=== PATIENT | female | born 1940 | race Hispanic/Latino ===

== ENCOUNTER 2016-12-31 10:12 | Inpatient (IN) | payer MEDICARE, MEDICAID, OTHER ==
[2016-12-31 11:36] VITALS: BMI 19.3
--- NOTE | 2016-12-31 12:01 | ED PDOC ---
Arrival/HPI - General Chief Complaint: Syncope Time Seen by Provider: 12/31/16 11:28 Historian: Patient, EMS - History of Present Illness Narrative History of Present Illness (Text): 12/31/16 11:04 A 76 year old female, who denies any significant past medical history, is brought into the emergency department by EMS after a near syncopal episode. EMS states the patient was found sitting on a chair at the bank and was not responding to any commands. The patient states she was standing by the [place] at the back when she began to feel hot. Patient does not recall the incident and states she does not believe she passed out. She says she came to the emergency department because EMS told her too. She denies any chest pain, shortness of breath, or any other complaints prior to the incident or at this time. PMD: Dr. Hall Time/Duration: Prior to Arrival Symptom Onset: Sudden Symptom Course: Unchanged Quality: Other Activities at Onset: Other Context: Other Past Medical History - Provider Review Nursing Documentation Reviewed: Yes - Infectious Disease Hx of Infectious Diseases: None - Psychiatric Hx Substance Use: No - Anesthesia Hx Anesthesia: No Family/Social History - Physician Review Nursing Documentation Reviewed: Yes Family/Social History: Unknown Family HX Smoking Status: Unknown If Ever Smoked Hx Alcohol Use: No Hx Substance Use: No Allergies/Home Meds Allergies/Adverse Reactions: Allergies No Known Allergies Allergy (Verified 12/31/16 10:40) Review of Systems - Physician Review All systems were reviewed & negative as marked: Yes - Review of Systems Constitutional: Other (felt hot) Respiratory: absent: SOB Cardiovascular: Syncope (questionable). absent: Chest Pain Physical Exam Vital Signs Reviewed: Yes Vital Signs Temp Pulse Resp BP Pulse Ox 12/31/16 12:12 53 L 16 180/91 H 100 12/31/16 10:38 96.9 F L 52 L 16 167/94 H 100 Temperature: Afebrile Blood Pressure: Hypertensive Pulse: Bradycardic Respiratory Rate: Normal Appearance: Positive for: Well-Appearing, Non-Toxic, Comfortable Pain Distress: None Mental Status: Positive for: Alert and Oriented X 3 Finger Stick Blood Glucose: 90 - Systems Exam Head: Present: Atraumatic, Normocephalic Pupils: Present: PERRL Extroacular Muscles: Present: EOMI Conjunctiva: Present: Normal Mouth: Present: Moist Mucous Membranes Neck: Present: Normal Range of Motion Respiratory/Chest: Present: Clear to Auscultation, Good Air Exchange. No: Respiratory Distress, Accessory Muscle Use Cardiovascular: Present: Regular Rate and Rhythm, Normal S1, S2. No: Murmurs Abdomen: Present: Normal Bowel Sounds. No: Tenderness, Distention, Peritoneal Signs Back: Present: Normal Inspection Upper Extremity: Present: Normal Inspection. No: Cyanosis, Edema Lower Extremity: Present: Normal Inspection. No: Edema Neurological: Present: GCS=15, CN II-XII Intact, Speech Normal Skin: Present: Warm, Dry, Normal Color. No: Rashes Psychiatric: Present: Alert, Oriented x 3, Normal Insight, Normal Concentration Medical Decision Making ED Course and Treatment: EKG: Ordered, reviewed, and independently interpreted the EKG. Rate : 49 BPM Rhythm : Sinus Bradycardia Interpretation : Normal axis, normal intervals, no acute ischemia. Comparison : No previous EKG for comparison. 12/31/16 12:25 Chest X-ray: Creator : Yasmin Mcgovern MD COMPARISON: No prior. FINDINGS: LUNGS: The lungs are hyperinflated and there is peribronchial thickening with chronic changes in both lungs. PLEURA: No significant pleural effusion identified, no pneumothorax apparent. CARDIOVASCULAR: There is a mild cardiomegaly. Atherosclerotic aortic arch calcifications are present. . OSSEOUS STRUCTURES: No significant abnormalities. VISUALIZED UPPER ABDOMEN: Normal. OTHER FINDINGS: None. IMPRESSION: COPD. No active pulmonary disease. 12/31/16 13:[address]: Creator : Yasmin Mcgovern MD COMPARISON: None available. FINDINGS: HEMORRHAGE: No intracranial hemorrhage. BRAIN: There is an old lacunar infarction in the left pierre radiata and body of the caudate nucleus. There are mild chronic microangiopathic changes. There is no mass, mass effect or abnormal extra-axial fluid collection. VENTRICLES: There is mild age-related global parenchymal volume loss and proportionate enlargement of the ventricles and cortical sulci. CALVARIUM: The skull base and calvarium are normal. PARANASAL SINUSES: There are retention cysts/polyps in the left frontal sinus and both maxillary sinuses. MASTOID AIR CELLS: Predominantly clear. OTHER FINDINGS: None. IMPRESSION: 1. No acute intracranial abnormality. 2. Old lacunar infarction in the left pierre radiata and body of the caudate nucleus. 3. Mild chronic microangiopathic changes and mild age-related global parenchymal volume loss. - Lab Interpretations Lab Results: 12/31/16 12:56 12/31/16 12:56 Lab Results 12/31/16 12:56: WBC 7.6, RBC 4.63, Hgb 14.3, Hct 42.7, MCV 92.2, MCH 30.9, MCHC 33.5, RDW 13.4, Plt Count 146, MPV 11.3 H, Gran % 86.7 H, Lymph % (Auto) 7.5 L, Giles % (Auto) 5.0, Eos % (Auto) 0.5 L, Baso % (Auto) 0.3, Gran # 6.58 H, Lymph # 0.6 L, Giles # 0.4, Eos # 0.0, Baso # 0.02, Sodium 135, Potassium 4.5, Chloride 103, Carbon Dioxide 25, Anion Gap 12, BUN 14, Creatinine 0.8, Est GFR ( Amer) > 60, Est GFR (Non-Af Amer) > 60, Random Glucose 80, Calcium 9.3, Total Bilirubin 1.1, AST 23, ALT 14, Alkaline Phosphatase 91, Troponin I < 0.01 , Total Protein 6.8, Albumin 3.8, Globulin 3.0, Albumin/Globulin Ratio 1.3 I have reviewed the lab results: Yes - RAD Interpretation Radiology Orders: 12/31/16 11:42 HEAD W/O CONTRAST [CT] Stat 12/31/16 11:43 CHEST PORTABLE [RAD] Stat - Scribe Statement The provider has reviewed the documentation as recorded by the Lotusibjimena Butler Provider Scribe Attestation: All medical record entries made by the Scribjimena were at my direction and personally dictated by me. I have reviewed the chart and agree that the record accurately reflects my personal performance of the history, physical exam, medical decision making, and the department course for this patient. I have also personally directed, reviewed, and agree with the discharge instructions and disposition. Disposition/Present on Arrival - Present on Arrival History of DVT/PE: No History of Uncontrolled Diabetes: No Urinary Catheter: No History of Decub. Ulcer: No History Surgical Site Infection Following: None - Disposition Referrals: Sadiq Hall MD [Primary Care Provider] - Follow up with primary
--- NOTE | 2016-12-31 12:22 | RAD ---
HISTORY: Syncope COMPARISON: No prior. FINDINGS: LUNGS: The lungs are hyperinflated and there is peribronchial thickening with chronic changes in both lungs. PLEURA: No significant pleural effusion identified, no pneumothorax apparent. CARDIOVASCULAR: There is a mild cardiomegaly. Atherosclerotic aortic arch calcifications are present. . OSSEOUS STRUCTURES: No significant abnormalities. VISUALIZED UPPER ABDOMEN: Normal. OTHER FINDINGS: None. IMPRESSION: COPD. No active pulmonary disease.
[2016-12-31 13:08] LABS: ADD MANUAL DIFF? NO
[2016-12-31 13:18] LABS: BASO # 0.02 K/mm3 (0.0-2.0); BASO % 0.3 % (0.0-3.0); EOS % 0.5 % (1.5-5.0); GRAN # 6.58 (1.4-6.5); GRAN % 86.7 % (50.0-68.0); HEMATOCRIT 42.7 % (36.0-48.0); LYMPH # 0.6 (1.2-3.4); LYMPH % 7.5 % (22.0-35.0); MEAN CELL VOLUME 92.2 fL (80.0-105.0); MEAN CORPUSCULAR HEMOGLOBIN 30.9 pg (25.0-35.0); MEAN CORPUSCULAR HGB CONC 33.5 g/dl (31.0-37.0); MEAN PLATELET VOLUME 11.3 fl (7.0-11.0); MONO # 0.4 (0.1-0.6); PLATELET COUNT 146 10^3/uL (120.0-450.0); RED CELL DISTRIBUTION WIDTH 13.4 % (11.5-14.5); WHITE BLOOD COUNT 7.6 10^3/ul (4.5-11.0)
[2016-12-31 13:32] LABS: ALB/GLOB RATIO 1.3 (1.1-1.8); ALKALINE PHOSPHATASE 91 U/L (38-133); ALT/SGPT 14 U/L (7-56); AST/SGOT 23 U/L (15-39); BILIRUBIN,TOTAL 1.1 mg/dL (0.2-1.3); BLOOD UREA NITROGEN 14 mg/dL (7-21); CALCIUM 9.3 mg/dL (8.4-10.5); CARBON DIOXIDE 25 mmol/L (21-33); CHLORIDE 103 mmol/L (98-107); GFR AFRICAN-AMERICAN > 60; GLUCOSE,RANDOM 80 mg/dL (70-110); POTASSIUM 4.5 mmol/L (3.6-5.0); SODIUM 135 mmol/L (132-148); TOTAL PROTEIN 6.8 g/dL (5.8-8.3)
--- NOTE | 2016-12-31 13:46 | CT ---
PROCEDURE: CT HEAD WITHOUT CONTRAST. HISTORY: Syncope COMPARISON: None available. TECHNIQUE: Axial computed tomography images were obtained through the head/brain without intravenous contrast. Radiation dose: Total exam DLP = 688.51 mGy-cm. This CT exam was performed using one or more of the following dose reduction techniques: Automated exposure control, adjustment of the mA and/or kV according to patient size, and/or use of iterative reconstruction technique. FINDINGS: HEMORRHAGE: No intracranial hemorrhage. BRAIN: There is an old lacunar infarction in the left pierre radiata and body of the caudate nucleus. There are mild chronic microangiopathic changes. There is no mass, mass effect or abnormal extra-axial fluid collection. VENTRICLES: There is mild age-related global parenchymal volume loss and proportionate enlargement of the ventricles and cortical sulci. CALVARIUM: The skull base and calvarium are normal. PARANASAL SINUSES: There are retention cysts/polyps in the left frontal sinus and both maxillary sinuses. MASTOID AIR CELLS: Predominantly clear. OTHER FINDINGS: None. IMPRESSION: 1. No acute intracranial abnormality. 2. Old lacunar infarction in the left pierre radiata and body of the caudate nucleus. 3. Mild chronic microangiopathic changes and mild age-related global parenchymal volume loss.
[2016-12-31 13:48] LABS: TROPONIN I < 0.01 ng/mL
[2016-12-31 17:46] LABS: PH,URINE 6.5 (4.7-8.0); URINE BILIRUBIN NEGATIVE (NEGATIVE); URINE BLOOD MODERATE (NEGATIVE); URINE GLUCOSE (UA) NEGATIVE (NEGATIVE); URINE KETONE 15 mg/dL (NEGATIVE); URINE LEUKOCYTE ESTERASE NEGATIVE Leu/uL (NEGATIVE); URINE PROTEIN NEGATIVE mg/dL (<30 mg/dL)
[2016-12-31 18:29] LABS: URINE APPEARANCE CLEAR (CLEAR); URINE COLOR YELLOW (YELLOW)
[2016-12-31 18:54] LABS: URINE BACTERIA SMALL (NEG); URINE WBC 0 - 2 /hpf (0-6)
--- NOTE | 2016-12-31 18:56 | CARD ---
APPROVED REPORT EKG Measurement Heart [id number] CT [id number] <Conclusion> Marked sinus bradycardia Abnormal ECG
[2017-01-01] MEDS: Pantoprazole 20 mg EC Tab PO SCH (10:50)
--- NOTE | 2017-01-01 12:33 | US ---
PROCEDURE: Bilateral carotid artery duplex ultrasound HISTORY: Carotid stenosis dizziness PHYSICIAN(S): Trevon Barry MD. TECHNIQUE: Duplex sonography and color-flow Doppler were used to evaluate the carotid bifurcations and limited segments of the vertebral arteries bilaterally. FINDINGS: There is mild smooth heterogeneous plaque noted at the carotid bifurcations bilaterally. The peak systolic velocity in the proximal right internal carotid artery is 51 cm/sec. This corresponds to a 20 to 39% proximal right ICA stenosis. Normal systolic velocities are noted in the proximal right external carotid artery. There is antegrade flow in the right vertebral artery. The peak systolic velocity in the proximal left internal carotid artery is 60 cm/sec. This corresponds to a 20 to 39% proximal left ICA stenosis. Normal systolic velocities are noted in the proximal left external carotid artery. There is antegrade flow in the dominant left vertebral artery. IMPRESSION: 1. Bilateral 20-39% proximal ICA stenoses. 2. Antegrade flow in both vertebral arteries.
--- NOTE | 2017-01-01 13:58 | PN ---
DATE: 01/01/2017 REASON FOR CONSULTATION AND FOLLOWUP: Syncope, near syncope. BRIEF CLINICAL HISTORY: This is a 76-year-old female with no significant past medical history except resection of cyst around possible kidney in the right kidney, who said she went to the bank yesterda y, feeling very warm feeling and told to the [place], who advised her to sit down, called the ambulanc e and brought here. The patient denies any chest pain, denies any shortness of breath, denies any pa lpitation. She thinks she did not pass out. PAST MEDICAL HISTORY: Significant for hypertension. SOCIAL HISTORY: Denies smoking. Denies any history of alcohol abuse. Quit 1999. PAST SURGICAL HISTORY: Significant for removal of a cyst around the right lower quadrant behind the kidney possibly. The patient does not know the details. Denies any significant medical history. REVIEW OF SYSTEMS: As per HPI. PHYSICAL EXAMINATION: As follows: VITAL SIGNS: Temperature afebrile, heart rate 55, blood pressure 122/72. HEENT: PERRLA, intact. NECK: Supple. No carotid bruits. No thyromegaly. CHEST: Clear to auscultation. HEART: S1, S2 regular. ABDOMEN: Soft. EXTREMITIES: Clubbing and cyanosis negative. BLOOD WORKUP: As follows: WBC 7.6, hemoglobin 14.3, hematocrit 42.7, platelet count 146. Chemistry shows sodium 135, potassium ____, chloride 103, carbon dioxide 25, anion gap of 12, BUN 14, creatini ne 0.8. Troponin 0.01. IMPRESSION: Atypical presentation. Rule out syncope, rule out underlying coronary artery disease. Suggest echo and stress test, lipid profile, TSH, hemoglobin A1c. We will follow with you. Thank you, Dr. Hall, for providing the opportunity in taking care of the patient. Silvio Paz MD cc: [id number] TT: 01/01/2017 13:58:04 Confirmation # [id number] Dictation # [id number] sn
--- NOTE | 2017-01-01 14:25 | HP ---
HISTORY OF PRESENT ILLNESS: The patient came to the Emergency Room because of near syncope episode. This is a 76-year-old female who came in to the ER by ambulance because was in the bank sitting in a chair and was not responding to any commands. The patient was standing by the [place] at the bank an d began feeling hot and she sat on a chair and she did not to anybody and she passed out for a few seconds, called the ambulance and brought her to the Emergency Room for evaluation. The patient denied any chest pain, any short of breath, any nausea, vomiting or diarrhea. The patient is also no ncompliant with medications. PAST MEDICAL HISTORY: None. She does not take any medicines. MEDICATIONS: None. ALLERGIES: She has no known allergies. SOCIAL HISTORY: No smoking, no drinking. FAMILY HISTORY: Noncontributory. REVIEW OF SYSTEMS: She denied any chest pain, shortness of breath, palpitations or any other symptom s. The patient is noncompliant with office visits or with the recommendations. PHYSICAL EXAMINATION: GENERAL: As follows: She was alert, awake, oriented x 3 in the Emergency Room. She was afebrile. VITAL SIGNS: Temperature 96.9, heart rate 53, blood pressure is 167/94, respirations 16, saturation is 100%. HEAD AND NECK: Normal. No JVD, no thyromegaly. CHEST: Clear, good air entry. CARDIAC: First and second sounds normal. ABDOMEN: Soft, nontender. EXTREMITIES: No edema. NEUROLOGIC: Normal. She moves all extremities. She does have chest wall deformity on both sides. LABORATORY DATA: CT scan shows atrophy. EKG shows sinus tachycardia and a chest x-ray was no active pulmonary disease. Her laboratory shows white count 7.6, hemoglobin 14.3, hematocrit 42.7, platelet s 146. Chemistry: Sodium 135, potassium 4.5, chloride 103, bicarb is 25, BUN 14, creatinine 0.8. L iver function test is normal. Troponin was negative. IMPRESSION AND PLAN: The patient is a 76-year-old female came in because of syncope. Will admit the patient to telemetry and monitor her heart rate. Cardiology consult, Dr. Paz, and neurology consult , Dr. White. The patient will get cardiac enzymes. Cardiac workup will be done. We will monitor h er heart rate and monitor cardiac enzymes, blood pressure and will follow up clinically. We will put her on blood pressure medications and will reassess her. Sadiq Hall MD cc: [phone] TT: 01/01/2017 14:24:44 deandre
--- NOTE | 2017-01-01 15:54 | CON ---
DATE: 01/01/2017 HISTORY OF PRESENT ILLNESS: This is a 76-year-old female with a past medical history ____. The renan ent was found ____ PHYSICAL EXAMINATION: ____ NECK: Supple. NEUROLOGIC: Awake, oriented to self and place. Cranial nerves II through XII were tested. Pupils r eactive. EOMs intact. Visual nuñez full. No facial asymmetry. Tongue midline. MOTOR: Moves all the extremities equally. Tone normal. REFLEXES: Deep tendon reflexes 1+. Both plantars are downgoing. SENSORY: Appears intact. CEREBELLAR GAIT: Deferred. IMPRESSION: Syncopal episode, less likely seizure. PLAN: The patient is going to get a carotid Doppler and we will do EEG. Further management after e results of above tests. Willard White MD cc: [id number] TT: 01/01/2017 14:44:03 Confirmation # [id number] Dictation # [id number] mn
[2017-01-02 07:08] LABS: ADD MANUAL DIFF? NO
[2017-01-02 07:14] LABS: BASO # 0.04 K/mm3 (0.0-2.0); BASO % 0.9 % (0.0-3.0); EOS # 0.2 (0.0-0.7); EOS % 5.5 % (1.5-5.0); HEMATOCRIT 37.4 % (36.0-48.0); LYMPH % 22.7 % (22.0-35.0); MEAN CELL VOLUME 90.3 fL (80.0-105.0); MEAN CORPUSCULAR HEMOGLOBIN 30.7 pg (25.0-35.0); MEAN PLATELET VOLUME 11.2 fl (7.0-11.0); MONO # 0.4 (0.1-0.6); MONO % 8.9 % (1.0-6.0); PLATELET COUNT 157 10^3/uL (120.0-450.0); RED CELL DISTRIBUTION WIDTH 13.2 % (11.5-14.5); WHITE BLOOD COUNT 4.4 10^3/ul (4.5-11.0)
[2017-01-02 07:31] LABS: ALB/GLOB RATIO 1.2 (1.1-1.8); ALKALINE PHOSPHATASE 68 U/L (38-133); ALT/SGPT 27 U/L (7-56); AST/SGOT 16 U/L (15-39); BILIRUBIN,TOTAL 0.4 mg/dL (0.2-1.3); BLOOD UREA NITROGEN 24 mg/dL (7-21); CARBON DIOXIDE 26 mmol/L (21-33); CHLORIDE 104 mmol/L (98-107); CHOLESTEROL 217 mg/dL (130-200); GFR AFRICAN-AMERICAN > 60; GLUCOSE,RANDOM 95 mg/dL (70-110); MAGNESIUM 1.9 mg/dL (1.7-2.2); PHOSPHOROUS 3.3 mg/dL (2.5-4.5); POTASSIUM 4.7 mmol/L (3.6-5.0); SODIUM 136 mmol/L (132-148); TOTAL PROTEIN 5.7 g/dL (5.8-8.3)
[2017-01-02] MEDS: Pantoprazole 20 mg EC Tab PO SCH (07:51)
--- NOTE | 2017-01-02 10:02 | PN ---
DATE: 01/02/2017 REASON FOR CONSULTATION AND FOLLOWUP: Near syncope. BRIEF CLINICAL HISTORY: This is a 76-year-old female with no significant past medical history except resection of the cyst and possible kidney area, admitted with feeling very warm, near syncope while patient was in the bank. The patient has bradycardic episodes. The lowest heart rate was 47 at 2 a. m. No other arrhythmia noted in telemetry. The patient denies any chest pain, shortness of breath, any palpitation. The patient is scheduled for an echo and stress test today. PHYSICAL EXAMINATION: VITAL SIGNS: Temperature afebrile, heart rate 60, blood pressure 131/75. HEENT: PERRLA. Extraocular muscles intact. NECK: Supple. No carotid bruits. No thyromegaly. CHEST: Clear to auscultation. HEART: S1, S2 regular. ABDOMEN: Soft. EXTREMITIES: Clubbing and cyanosis negative. BLOOD WORKUP: WBC 4.4, hemoglobin 12.____, hematocrit 37.4, platelet count 157. Chemistry shows sod ium 136, potassium 4.7, chloride 104, carbon dioxide 26, anion gap of 11, BUN 24, creatinine 0.9. TS H 2.78. Cholesterol 217, LDL 216, HDL of 83, total protein 5.7, albumin 3.____, albumin/globulin rat io 1.2. IMPRESSION: Near syncope; bradycardia, lowest heart rate 47 on banquet lead while the patient w as sleeping at 2 a.m.; rule out any structural heart disease, rule out any ischemia, rule out any bra dyarrhythmia. RECOMMENDATION: Echo and stress test. We will consider a Holter after the stress test is completed. Will follow with you. Thank you, Dr. Hall, for providing the opportunity in taking care of the patient. Silvio Paz MD cc: [id number] TT: 01/02/2017 10:01:26 Confirmation # [id number] Dictation # [id number] giovanna
[2017-01-02] MEDS ORDERED: Aminophylline 25 mg/ml Inj ONE (11:22)
--- NOTE | 2017-01-02 13:23 | PN ---
DATE: 01/02/2017 CHIEF COMPLAINT: Follow up for near syncope. SUBJECTIVE: The patient is seen and examined at bedside. She is doing well. She had bradycardic ep isodes overnight. Lowest heart rate was 47. No arrhythmia noted on telemetry. She denies any focal tingling, numbness or weakness in the extremities at this time. She does not take an aspirin at [facility]. She is undergoing an echo and a stress test today. Carotid Doppler showed 20-39% proximal ICA st enosis and antegrade flow in the vertebral arteries. No acute events overnight. PAST MEDICAL HISTORY: None, is not taking any medications. MEDICATIONS: None at home. ALLERGIES: No known drug allergies. SOCIAL HISTORY: No illicit drug use, smoking, or ETOH abuse. FAMILY HISTORY: Noncontributory. REVIEW OF SYSTEMS: A 14-point review of systems is negative except for the HPI. PHYSICAL EXAMINATION: VITAL SIGNS: Temperature of 97.4, pulse rate of 66, blood pressure of 131/75, respiratory rate of 18 , oxygen saturation 98% via room air. GENERAL: The patient is sitting up in bed in no acute distress. HEENT: Atraumatic, normocephalic. PERRLA. Extraocular muscles intact. NECK: Supple, no JVD, no adenopathy noted. LUNGS: Clear to auscultation. No adventitious sounds. HEART: S1, S2, normal rate and rhythm. No murmurs, rubs, or gallops. ABDOMEN: Soft, nontender, nondistended. Bowel sounds are present. EXTREMITIES: No clubbing, no cyanosis. Peripheral pulses 2+ felt bilaterally. NEUROLOGIC: The patient is alert, oriented to person, place, month and year. Speech is fluent witho ut any errors. Flat affect. MOTOR: Slight increased tone throughout. Moves all extremities equally. No pronator drift seen. SENSORY: Light touch, pinprick, proprioception, vibration is intact. DTRs are 2+ throughout. COORDINATION: [id number] intact. GAIT: Deferred for now. LABORATORIES: Sodium is 136, potassium 4.7, chloride of 104, carbon dioxide 26, BUN of 24, creatinin e 0.9, random glucose of 95. ASSESSMENT AND PLAN: This is a 76-year-old woman with no significant past medical history, found to be bradycardic throughout her admission, the lowest being 47, came for a syncopal event. Her neurolo gic exam is currently nonfocal and the carotid Doppler showed 20-39% proximal internal carotid artery stenosis. Her syncope is likely secondary to possibly underlying possible arrhythmia/bradycardia ra ther than a seizure, unlikely a seizure disorder. At this time, recommend: 1. Physical therapy evaluation. 2. Aspirin 81 mg p.o. daily. 3. Requires better hydration throughout the day. 4. Follow up with cardiology in regards to the echo and stress test. At this time, no further neuro logical workup is needed at this time. Thank you for this followup. We will sign off. Ricki White MD cc: [phone] TT: 01/02/2017 13:22:45 Confirmation # [id number] Dictation # [id number] tn
--- NOTE | 2017-01-02 13:44 | PN ---
DATE: 01/01/2017 SUBJECTIVE: A 76-year-old female who came in with syncope. The patient seen by cardiology and neuro logy. She has an EEG that is pending and a stress test is pending. She feels better. She has no na usea, no recurrent symptoms and she feels better. PHYSICAL EXAMINATION: VITAL SIGNS: Temperature 98.4, heart rate 71, blood pressure 120/82, respirations 20, saturation 98% . HEAD AND NECK: Normal. No JVD, no thyromegaly. CHEST: Clear. Good air entry. CARDIAC: First sound, second sound normal. ABDOMEN: Soft, obese, nontender. EXTREMITIES: No edema. NEUROLOGIC: Normal. LABORATORY STUDIES: Ordered for tomorrow. Her labs previously were normal. We will repeat lab in t morning., chemistry, CBC, comprehensive metabolic and TSH. IMPRESSION AND PLAN: 1. Syncope. Neurology will get an EEG. CT was negative for bleed. Also, stress test will be order ed. The patient did have an echo, seen by cardiology. She had a carotid ultrasound. It was insigni ficant carotid stenosis and also she had an echocardiogram which results still pending. We will foll ow up clinically. 2. Hypertension. We will start Norvasc 2.5 mg daily. 3. The patient does have mental status. Her living situation lives by herself. She may benefit fro m some sort of antidepressant. She looks a little bit depressed; however, there is not any suicidal ideation. She is alert, awake, oriented x 3. We will continue current treatments. We will follow u p clinically with the other consultants. Continue aspirin, continue Norvasc. Continue current medic ations. Sadiq Hall MD cc: [phone] TT: 01/02/2017 13:43:09 Confirmation # [id number] Dictation # [id number] tn
--- NOTE | 2017-01-02 16:48 | CARD ---
APPROVED REPORT Protocol: LEXISCAN Test Type: Lexiscan Sestamibi Stress Test Attending Physician: Dr. IRASEMA CONNER Referring Physician: Dr. BERRY Test Indications: Syncope Height:5 ft 0 in Weight:80lbs Medications: ASA APRESOLINE Medical History: 76 Y/O FEMALE HX OF SYNCOPE Target HR: 146 bpm Resting ECG: Sinus Bradycardia 54/minute. Resting Heart Rate: 59 bpm Resting Blood Pressure: 102/60mmHg Submaximum (85%): 124 bpm PROCEDURE Pharmacologic stress testing was performed using 0.4mg per 5ml of regadenoson given intravenously over 7-10 seconds. POST EXERCISE Reason for Termination: Protocol completed Target HR: No Max HR: 80 bpm 59% of Maximum Predicted HR: 146 bpm Exercise duration: 05:08 min:sec, 0 Stage Exercise capacity: 1.0METs Max Blood Pressure: 108/64mmHg Blood Pressure response to exercise: normal resting BP - appropriate response Heart Rate response to exercise: appropriate Chest Pain: No, none Angina index: 0 Arrhythmia: No, none ST Change: No, none Deviation: 0 mm TEST SUMMARY [id number]/60.0. INFUSIONDOSE 101:000.00.01.071/.0. INFUSIONDOSE 201:000.00.01.077/.0. INFUSIONDOSE 301:[id number]/62.0. INFUSIONDOSE 401:[id number]/64.0. INFUSIONDOSE 501:[id number]/64.0. INFUSIONDOSE 600:080.00.01.080/.0. INTERPRETATION Stress EKG Conclusion: IV LEXISCAN NUCLEAR STRESS TEST NEGATIVE FOR CHEST PAIN AND NEGATIVE FOR ST-T CHANGES. NUCLEAR SCAN REPORT PENDING. Signed by IRASEMA CONNER Electronically Approved: 01/02/2017 12:42:20 EXAM: Myocardial Perfusion REST/STRESS Stress Test Type: Pharmacologic Imaging Protocol Rest Spect myocardial perfusion imaging was performed in supine position 45 minutes following the injection of 10.1 mCi of Tc-99 Myoview. At peak stress, the patient was injected intravenously with 30.3mCi of Tc-99 tetrofosmin after an infusion time of 0 minutes and 10 seconds. Gated Stress Spect was performed 65 minutes after intravenous Tc-99 Myoview injection. The images were gated to evaluate regional wall motion and calculate ventricular ejection fraction.Images were reconstructed using backfilter projection method in short horizontal and verticle long axis. Spect slices were generated. LV Perfusion The quality of the study is good. The left ventricle is normal in size. The right ventricle is unremarkable. The lung uptake is within normal limits. The distribution of tracer reveals normal uptake pattern throughout the LV myocardium on the stress study. The rest myocardial perfusion study shows no significant change. Wall Motion Wall motion study shows good contractility of the left ventricle. LVEF = 74%. Conclusion 1. Normal SPECT myocardial perfusion study. 2. Normal gated wall motion of the left ventricle.
--- NOTE | 2017-01-02 20:22 | CARD ---
APPROVED REPORT EXAM: Two-dimensional and M-mode echocardiogram with Doppler and color Doppler. INDICATION Chest Pain LVFX 2D DIMENSIONS Left Atrium (2D)4.2 (1.6-4.0cm)IVSd0.8 (0.7-1.1cm) LVDd4.0 (3.9-5.9cm)PWd0.9 (0.7-1.1cm) M-Mode DIMENSIONS Aortic Root3.20 (2.2-3.7cm)Aortic Cusp Exc.1.40 (1.5-2.0cm) Aortic Valve AoV Peak Ofsgnprh262.0cm/Andrey Peak GR.8mmHg Mitral Valve MV E Ajmuitjx92.9cm/sMV A Brfsidxo90.6cm/sE/A ratio0.7 TDI Lateral E' Peak V4.39cm/sMedial E' Peak V7.12cm/sE/Lateral E'11.4 E/Medial E'7.0 Pulmonary Valve PV Peak Zmuyzcfn15.6cm/sPV Peak Grad.2mmHg Tricuspid Valve TR Peak Vfpcgzod586nw/sRAP [id number] Peak Gr.25mmHg [id number] LEFT VENTRICLE The left ventricle is normal size. There is normal left ventricular wall thickness. The systolic function is mildly impaired.EF-45% There is mild hypokinesis in the apical anterior wall. Transmitral Doppler flow pattern is Grade III-reversible restrictive diastolic dysfunction. No left ventricle thrombus noted on this study. There is no ventricular septal defect visualized. There is no left ventricular aneurysm. There is no mass noted in the left ventricle. RIGHT VENTRICLE The right ventricle is mildly dilated. The right ventricle is borderline hypertrophied. Systolic function of RV is mildly reduced. ATRIA The left atrium is mildly dilated. The right atrium is mildly dilated. The atrial septum is aneurysmal. AORTIC VALVE The aortic valve is calcified and displays decreased opening. There is trace aortic regurgitation. There is mild valvular aortic stenosis. There is no aortic valvular vegetation. MITRAL VALVE The mitral valve is thickened but opens well. Mitral annular calcification is mild to moderate. Mitral regurgitation is moderate. There is no mitral valve stenosis. There is no evidence of mitral valve prolapse. TRICUSPID VALVE The tricuspid valve leaflets are thickened , but open well. There is mild to moderate tricuspid regurgitation.RVSP-35 MMoF hg. There is no tricuspid valve stenosis. There is no tricuspid valve prolapse or vegetation. PULMONIC VALVE The pulmonic valve is not well visualized. GREAT VESSELS The aortic root is normal in size. The ascending aorta is normal in size. The pulmonary artery is normal. PERICARDIAL EFFUSION There is no pleural effusion. There is a trace to small pericardial effusion. <Conclusion> The left ventricle is normal size. There is normal left ventricular wall thickness. The systolic function is mildly impaired.EF-45% The right ventricle is mildly dilated. Systolic function of RV is mildly reduced. There is trace aortic regurgitation. There is mild valvular aortic stenosis. Mitral regurgitation is moderate. There is mild to moderate tricuspid regurgitation.RVSP-35 MMoF hg. There is a trace to small pericardial effusion.
[2017-01-02 21:00] VITALS: RESP 20
--- NOTE | 2017-01-02 22:07 | PN ---
DATE: 01/02/2017 A 76-year-old female. The patient is comfortable, no distress. The patient seems stable. She feels weak. She also still has the Holter monitors to be read, and also the patient had a stress test don e today. Currently stable; need more physical therapy, gait training. Her physical exam today, 01/02/2017: Temperature 97.7, heart rate 60, blood pressure 131/75, respirations 18, saturation 98%. HEAD AND NECK EXAMINATION: Normal. No JVD, no thyromegaly. CHEST EXAMINATION: Clear, good air entry. CARDIAC: First sounds, second sounds normal. ABDOMEN: Soft, nontender. EXTREMITIES: No edema. NEUROLOGICALLY: Normal. LABORATORY STUDIES TODAY: White count 4.4, hemoglobin 12.7, hematocrit 37.4, platelets 157. Bioinformatics Programmer ry: Sodium 136, potassium 4.7, chloride 104, bicarb 26, BUN 24, creatinine 0.9. Liver function test is normal. The patient has cholesterol 217, HDL is 83, and LDL is 112. TSH is 2.7. The patient al so has hemoglobin A1c 5.4. OTHER LABORATORIES DONE: A myocardial stress test which shows pharmacological stress test which show s the following: Normal SPECT myocardial perfusion study, and normal gated wall motion. The patient also had an echocardiogram which is read as is the following: Left ventricle normal in s ize, normal wall thickness, and systolic function is mildly impaired, 45% ejection fraction. Right v entricle moderately dilated, systolic function of right ventricle mildly reduced, and there is mild v alvular aortic stenosis, and [id number] tricuspid regurgitation, and right ventricular systolic pressure is 35. IMPRESSION AND PLAN: 1. Syncope. The patient's etiology of syncope is unclear. Could be cardiac arrhythmia. The patient is bradycardic, heart rate is in the 50s. We will get a Holter monitor. Still wearing it. Also, n uclear stress test was negative for ischemia. Also, the patient has low EF. Will consider treating her cardiac condition with medication to improve LV function. Will discuss further with the cardiolo gist. 2. Neurologically, the patient is stable. CT of the head was negative. Electrocardiogram was sinus bradycardia. EEG is still pending. 3. Hypertension. Continue current blood pressure medicine. 4. Gait disorders: Will get physical therapy, possible TCU. PLAN: Continue current treatment. Will follow up clinically. Sadiq Hall MD cc: [phone] TT: 01/02/2017 22:06:26 Confirmation # [id number] Dictation # [id number] jn
[2017-01-03 08:33] VITALS: BP 135/86; PULSE 58; TEMP 98.5; O2SAT 98
[2017-01-03] MEDS: Pantoprazole 20 mg EC Tab PO SCH (10:52)
--- NOTE | 2017-01-04 01:06 | PN ---
DATE: 01/03/2017 LOCATION: The patient in room 378, bed 1. REASON FOR CONSULTATION: Near syncope. HISTORY OF PRESENT ILLNESS: A 76-year-old female with no significant past medical history except for resection of a cyst possibly at the kidney area, admitted with feeling very warm, near syncope while the patient was in the bank. The patient also had episode of bradycardia. Lowest heart rate was 47 at 2:00 a.m. No other day dysrhythmia noted. The patient denies any chest pain, shortness of breat h, palpitation. Denies any dizziness or headache at present. PHYSICAL EXAMINATION: VITAL SIGNS: Blood pressure 135/86, respirations 20, pulse 58, temperature 98.5. HEAD: Normocephalic. EYES: Pupils normal. Conjunctivae normal. NOSE AND THROAT: Normal. NECK: JVP low. Carotid equal. THORAX: AP diameter normal. LUNGS: Clear. CARDIOVASCULAR: S1, S2. ABDOMEN: Soft, nontender, no organomegaly. Bowel sounds normal. EXTREMITIES: No clubbing, no cyanosis. LABORATORY DATA: WBC 4.4, hemoglobin 12.7, hematocrit 37.4, platelets 157. Sodium 136, potassium 4. 7, BUN 24, creatinine 0.9. Calcium, phosphorus, magnesium normal. AST, ALT normal. Total protein 5 .7, albumin 3.1. TSH 2.78. DIAGNOSES: Near syncope, bradycardia during sleep. The patient had a stress test 01/02/2017, which was normal with LV ejection fraction of 74%. PLAN: To continue present therapy, stress test negative. Will monitor and follow with you. Silvio Mcallister MD cc: [id number] TT: 01/04/2017 01:06:13 Confirmation # [id number] Dictation # [id number] mn
--- NOTE | 2017-01-04 11:48 | DS ---
The patient is clinically stable. She is walking with physical therapy, stable. Can go home on phys ical therapy. The patient is stable, has no chest pain, no short of breath. She is alert, awake, or iented x 3. PHYSICAL EXAMINATION: Temperature 98.5, heart rate 58, blood pressure 135/86, respirations 20, saturation 98%. HEAD AND NECK EXAMINATION: Normal. No JVD. No thyromegaly. CHEST EXAMINATION: Clear, good air entry. CARDIAC EXAMINATION: First sound, second sound normal. ABDOMEN: Soft, nontender. EXTREMITIES: No edema. NEUROLOGICALLY: Normal. The patient had a myocardial stress test which shows no reversible ischemia. However, the patient thibodeaux d normal SPECT myocardial perfusions, and also she had on the echocardiogram she had left ventricle n ormal, ejection fraction is mildly impaired 45% with mild enlargement of right ventricles, and modera te mitral regurg, [id number] tricuspid regurg. The right ventricular systolic pressure is 35. The patient needs followup for that, and monitor her LV functions. IMPRESSION AND PLAN: 1. Syncope. Etiology of syncope, unclear. She was seen by neurologist. She was okay to be discharg ed. Her CT was negative. EEG is still pending. 2. Left ventricular dysfunctions. 3. Valvular heart disease, moderate mitral regurgitations. 4. Hypertension. PLAN: Discharge patient home on aspirin, Protonix, Norvasc 2.5 mg. Follow up as outpatient within a week. Sadiq Hall MD cc: [phone] TT: 01/04/2017 11:48:04 jn
== END 2017-01-03 17:17 | disposition home or self-care (01) | DRG 310 ==
LOC: ED 10:12 → ERH 16:55 → 2RSO 01-01 00:44 → OBSVTOIN 01-02 12:57 → 3RSO 01-02 23:24
PROVIDERS: ADMIT Internal Medicine; ATTEND Internal Medicine
DX: R00.1 Bradycardia, unspecified (principal); I08.2 Rheumatic disorders of both aortic and tricuspid valves; I10 Essential (primary) hypertension; I65.23 Occlusion and stenosis of bilateral carotid arteries; R55 Syncope and collapse; Z91.14 Patient's other noncompliance with medication regimen